=== PATIENT | female | born 1950 | race Caucasian/White ===

== ENCOUNTER 2019-05-06 21:23 | Emergency (ER) | payer MEDICAID ==
[~2019-05-06] VITALS: Ht 165.1 cm; Wt 68.2 kg
[2019-05-07 01:30] VITALS: BP 129/63
== END 2019-05-07 01:30 | disposition home or self-care (01) ==
LOC: EMS 21:24
DX: Z59.0 Homelessness (principal); F20.9 Schizophrenia, unspecified; F12.90 Cannabis use, unspecified, uncomplicated; F17.290 Nicotine dependence, other tobacco product, uncomplicated
CPT/HCPCS: 99406